=== PATIENT | female | born 1990 | race Two or more races ===

== ENCOUNTER 2021-04-15 14:59 | Emergency (ER) | payer MEDICAID, OTHER ==
[~2021-04-15] VITALS: Ht 170.2 cm; Wt 65.8 kg
[~2021-04-15 14:59] MED LIST: INSU100C10 SQ
--- NOTE | 2021-04-15 15:16 | NUR ---
The patient bibs for c/o BLE edema noticed this morning after insulin shot, denies pain. Respiration regular and unlabored. Denies SOB. Will continue to monitor the patient.
--- NOTE | 2021-04-15 15:57 | NUR ---
Patient discharged to home in stable condition. Written and verbal after care instructions given. Patient verbalizes understanding of instruction.
[2021-04-15 15:58] VITALS: BP 126/8
== END 2021-04-15 15:58 | disposition home or self-care (01) ==
LOC: ER 14:59
DX: M25.472 Effusion, left ankle (principal); M25.471 Effusion, right ankle; E11.9 Type 2 diabetes mellitus without complications; Z79.4 Long term (current) use of insulin